=== PATIENT | female | born 1950 ===

== ENCOUNTER 2024-11-19 11:10 | Inpatient (IN) ==
[2024-11-19] MEDS ORDERED: IOPAMIDOL 100 ML BOTTLE IV ONE (11:11)
[2024-11-19] MEDS: 0.9 % SODIUM CHLORIDE 1,000 ML IV ONE (11:42)
[2024-11-19 12:00] LABS: Basophils # (Auto) 0.04 K/mcL (0.00-0.30); Basophils % (Auto) 0.4 % (0.0-2.0); Eosinophils # (Auto) 0.34 K/mcL (0.00-0.70); Eosinophils % (Auto) 3.6 % (0.0-7.0); Hematocrit 43.2 % (34.1-44.9); Hemoglobin 14.5 g/dL (11.2-15.7); Lymphocytes # (Auto) 2.89 K/mcL (1.50-4.80); Lymphocytes % (Auto) 30.4 % (15.5-49.0); Mean Cell Volume 95.2 fL (80.0-100.0); Mean Corpuscular HGB Conc 33.6 g/dL (31.0-36.0); Mean Platelet Volume 10.4 fL (8.8-12.5); Monocytes # (Auto) 0.85 K/mcL (0.10-0.90); Monocytes % (Auto) 8.9 % (1.0-12.0); Neutrophils % (Auto) 56.6 % (38.0-78.0); Platelet Count 235 K/mcL (140-440); RBC 4.54 M/mcL (3.59-5.38); Red Cell Distribution Width 12.8 % (11.5-14.5); WBC 9.5 K/mcL (4.5-11.0)
[2024-11-19] MEDS: DILTIAZEM 25 MG/5 ML VIAL IV ONE ×2 (12:29→13:52)
[2024-11-19 12:38] LABS: Blood Urea Nitrogen 23 mg/dL (8-23); Calcium 9.2 mg/dL (8.6-10.4); Carbon Dioxide 20 mmol/L (22-30); Chloride 106 mmol/L (96-108); Glomerular Filtration Rate 72; Glucose 94 mg/dL (70-105); Potassium 4.2 mmol/L (3.3-5.1); Sodium 139 mmol/L (133-145)
[2024-11-19 13:06] LABS: Thyroid Stimulating Hormone 0.01 uIU/mL (0.27-5.01)
[2024-11-19] MEDS: ADENOSINE 3 MG/ML VIAL IV ONE ×2 (13:14→13:16)
[2024-11-19 13:50] LABS: Free T4 (Free Thyroxine) 1.74 ng/dL (0.93-1.70)
[2024-11-19] MEDS: FUROSEMIDE 20 MG/2 ML VIAL IV ONE (13:52)
[2024-11-19] MEDS: DILTIAZEM 125 MG in DEXTROSE 5% IN WATER 100 ML IV SCH (13:52)
[2024-11-19] MEDS: niCARdipine 25 MG in 0.9 % SODIUM CHLORIDE 240 ML IV ONE (13:53)
[2024-11-19] MEDS: METOPROLOL TARTRATE 5 MG/5 ML VIAL IV ONE (15:45)
[2024-11-19] MEDS: ENOXAPARIN 60 MG/0.6 ML SYRINGE SQ ONE (15:52)
[2024-11-19] MEDS: METOPROLOL TARTRATE 5 MG/5 ML VIAL IV SCH (16:33)
[2024-11-19] MEDS: DILTIAZEM 120 MG CAP.XL.24H PO ONE ×2 (18:03→19:25)
[2024-11-19] MEDS ORDERED: MAGNESIUM SULFATE 2 GM/50 ML BAG IV PRN (19:53)
[2024-11-19] MEDS ORDERED: IPRATROPIUM/ALBUTEROL 3 ML AMPUL.NEB NEB PRN (19:53)
[2024-11-19] MEDS ORDERED: SENNOSIDES 1 TABLET PO PRN (19:53)
[2024-11-19] MEDS ORDERED: POTASSIUM CHLORIDE 40 MEQ in DEXTROSE 5% IN WATER 500 ML IV PRN (19:53)
[2024-11-19] MEDS ORDERED: POTASSIUM CHLORIDE 20 MEQ TABLET PO PRN ×2 (19:53)
[2024-11-19] MEDS ORDERED: POLYETHYLENE GLYCOL 3350 17 GM PACKET PO PRN (19:53)
[2024-11-19] MEDS ORDERED: METOCLOPRAMIDE 10 MG/2 ML VIAL IV PRN (19:53)
[2024-11-19] MEDS ORDERED: ONDANSETRON 4 MG/2 ML VIAL IV PRN (19:53)
[2024-11-19] MEDS: METOPROLOL TARTRATE 50 MG TABLET PO SCH (20:06)
[2024-11-19] MEDS: ESMOLOL 2,500 MG in PREMIX 1 BAG IV SCH (20:09)
[2024-11-19] MEDS: 0.9 % SODIUM CHLORIDE 250 ML IV SCH (20:10)
[2024-11-19] MEDS: ESMOLOL 250 ML IV ONE (20:10)
[2024-11-19] MEDS: METOPROLOL TARTRATE 25 MG TABLET ONE (20:11)
[2024-11-19] MEDS: DOCUSATE SODIUM 100 MG CAPSULE PO SCH (21:22)
[2024-11-19] MEDS: ENOXAPARIN 60 MG/0.6 ML SYRINGE SQ SCH (21:29)
[2024-11-19] MEDS: ENOXAPARIN 60 MG/0.6 ML SYRINGE ONE (21:31)
[2024-11-20] MEDS: METOPROLOL TARTRATE 5 MG/5 ML VIAL IV PRN (00:30)
[2024-11-20] MEDS: ESMOLOL 0 ML IV ONE (02:37)
[2024-11-20] MEDS: AMIODARONE 150 MG/100 ML IV PRN (03:38)
[2024-11-20] MEDS: AMIODARONE 150 MG/3 ML VIAL ONE ×2 (03:45→05:23)
[2024-11-20] MEDS: ESMOLOL 250 ML IV ONE ×3 (05:52→23:49)
[2024-11-20 07:11] LABS: ALT/SGPT 34 U/L (<40); AST/SGOT 29 U/L (<32); Albumin 3.4 gm/dL (3.2-5.2); Albumin/Globulin Ratio 1.4 (1.0-2.3); Alkaline Phosphatase 128 U/L (39-117); Bilirubin,Direct 0.5 mg/dL (<0.3); Bilirubin,Total 1.1 mg/dL (0.1-1.0); Blood Urea Nitrogen 18 mg/dL (8-23); Calcium 8.7 mg/dL (8.6-10.4); Carbon Dioxide 19 mmol/L (22-30); Chloride 105 mmol/L (96-108); Globulin 2.4 gm/dL (2.2-3.7); Glomerular Filtration Rate 85; Glucose 89 mg/dL (70-105); Lactate Dehydrogenase 196 U/L (135-225); Phosphorous 3.5 mg/dL (2.5-4.5); Potassium 3.9 mmol/L (3.3-5.1); Sodium 140 mmol/L (133-145); Triglycerides 89 mg/dL (<150); Uric Acid 6.6 mg/dL (2.5-8.0)
[2024-11-20 08:15] LABS: Thyroid Stimulating Hormone 0.01 uIU/mL (0.27-5.01)
[2024-11-20 08:16] LABS: Free T4 (Free Thyroxine) 1.7 ng/dL (0.93-1.70)
[2024-11-20] MEDS: METOPROLOL TARTRATE 50 MG TABLET PO SCH ×2 (08:29→21:04)
[2024-11-20] MEDS: METHIMAZOLE 5 MG TABLET PO SCH (08:30)
[2024-11-20] MEDS: DILTIAZEM 240 MG CAP.XL.24H PO SCH (09:29)
[2024-11-20] MEDS: DIGOXIN 500 MCG/2 ML AMPUL IV ONE (11:54)
[2024-11-20] MEDS: METOPROLOL TARTRATE 50 MG TABLET PO ONE (12:01)
[2024-11-20] MEDS: DIGOXIN 500 MCG/2 ML AMPUL IV SCH (18:25)
[2024-11-21 07:12] LABS: Basophils # (Auto) 0.05 K/mcL (0.00-0.30); Basophils % (Auto) 0.5 % (0.0-2.0); Eosinophils # (Auto) 0.32 K/mcL (0.00-0.70); Eosinophils % (Auto) 3.2 % (0.0-7.0); Hematocrit 44.3 % (34.1-44.9); Hemoglobin 14.6 g/dL (11.2-15.7); Lymphocytes # (Auto) 1.84 K/mcL (1.50-4.80); Lymphocytes % (Auto) 18.2 % (15.5-49.0); Mean Cell Volume 95.3 fL (80.0-100.0); Mean Platelet Volume 10.9 fL (8.8-12.5); Monocytes # (Auto) 0.99 K/mcL (0.10-0.90); Monocytes % (Auto) 9.8 % (1.0-12.0); Neutrophils % (Auto) 68.2 % (38.0-78.0); Platelet Count 240 K/mcL (140-440); RBC 4.65 M/mcL (3.59-5.38); Red Cell Distribution Width 12.6 % (11.5-14.5); WBC 10.1 K/mcL (4.5-11.0)
[2024-11-21 07:13] LABS: ALT/SGPT 28 U/L (<40); AST/SGOT 27 U/L (<32); Albumin 3.5 gm/dL (3.2-5.2); Albumin/Globulin Ratio 1.5 (1.0-2.3); Alkaline Phosphatase 124 U/L (39-117); Bilirubin,Total 0.9 mg/dL (0.1-1.0); Blood Urea Nitrogen 16 mg/dL (8-23); Calcium 8.9 mg/dL (8.6-10.4); Carbon Dioxide 21 mmol/L (22-30); Chloride 103 mmol/L (96-108); Globulin 2.4 gm/dL (2.2-3.7); Glomerular Filtration Rate 85; Glucose 97 mg/dL (70-105); Potassium 3.8 mmol/L (3.3-5.1); Sodium 136 mmol/L (133-145)
[2024-11-21] MEDS: FUROSEMIDE 20 MG TABLET PO SCH (08:26)
[2024-11-21] MEDS: APIXABAN 5 MG TABLET PO SCH (11:01)
[2024-11-21] MEDS: LISINOPRIL 2.5 MG TABLET PO SCH (11:01)
[2024-11-21] MEDS: DIGOXIN 125 MCG TABLET PO SCH (15:10)
[2024-11-22 06:54] LABS: Basophils # (Auto) 0.03 K/mcL (0.00-0.30); Basophils % (Auto) 0.3 % (0.0-2.0); Eosinophils # (Auto) 0.32 K/mcL (0.00-0.70); Eosinophils % (Auto) 3.3 % (0.0-7.0); Hematocrit 45.9 % (34.1-44.9); Hemoglobin 15.5 g/dL (11.2-15.7); Lymphocytes # (Auto) 2.44 K/mcL (1.50-4.80); Lymphocytes % (Auto) 25.4 % (15.5-49.0); Mean Cell Volume 94.4 fL (80.0-100.0); Mean Corpuscular HGB Conc 33.8 g/dL (31.0-36.0); Mean Platelet Volume 10.8 fL (8.8-12.5); Monocytes # (Auto) 1.14 K/mcL (0.10-0.90); Monocytes % (Auto) 11.9 % (1.0-12.0); Platelet Count 259 K/mcL (140-440); RBC 4.86 M/mcL (3.59-5.38); Red Cell Distribution Width 12.7 % (11.5-14.5); WBC 9.6 K/mcL (4.5-11.0)
[2024-11-22 07:44] LABS: ALT/SGPT 26 U/L (<40); AST/SGOT 27 U/L (<32); Albumin 3.5 gm/dL (3.2-5.2); Albumin/Globulin Ratio 1.3 (1.0-2.3); Alkaline Phosphatase 123 U/L (39-117); Bilirubin,Total 1.1 mg/dL (0.1-1.0); Blood Urea Nitrogen 10 mg/dL (8-23); Calcium 9.1 mg/dL (8.6-10.4); Carbon Dioxide 22 mmol/L (22-30); Chloride 101 mmol/L (96-108); Globulin 2.7 gm/dL (2.2-3.7); Glomerular Filtration Rate 90; Glucose 97 mg/dL (70-105); Potassium 3.5 mmol/L (3.3-5.1); Sodium 136 mmol/L (133-145)
[2024-11-22] MEDS: DIGOXIN 125 MCG TABLET PO SCH (11:52)
[2024-11-22] MEDS ORDERED: DIGOXIN 125 MCG TABLET PO SCH (14:00)
[2024-11-23 06:18] LABS: Digoxin 1.1 ng/mL
[2024-11-23 06:32] LABS: ALT/SGPT 28 U/L (<40); AST/SGOT 28 U/L (<32); Albumin 3.3 gm/dL (3.2-5.2); Albumin/Globulin Ratio 1.3 (1.0-2.3); Alkaline Phosphatase 113 U/L (39-117); Bilirubin,Total 0.8 mg/dL (0.1-1.0); Blood Urea Nitrogen 13 mg/dL (8-23); Carbon Dioxide 21 mmol/L (22-30); Chloride 106 mmol/L (96-108); Globulin 2.6 gm/dL (2.2-3.7); Glomerular Filtration Rate 85; Glucose 102 mg/dL (70-105); Sodium 139 mmol/L (133-145)
[2024-11-23 06:43] LABS: Basophils # (Auto) 0.03 K/mcL (0.00-0.30); Basophils % (Auto) 0.3 % (0.0-2.0); Eosinophils # (Auto) 0.47 K/mcL (0.00-0.70); Eosinophils % (Auto) 4.8 % (0.0-7.0); Lymphocytes % (Auto) 27.7 % (15.5-49.0); Mean Cell Volume 94.3 fL (80.0-100.0); Mean Corpuscular HGB Conc 33.3 g/dL (31.0-36.0); Mean Platelet Volume 10.6 fL (8.8-12.5); Monocytes # (Auto) 1.07 K/mcL (0.10-0.90); Neutrophils % (Auto) 55.9 % (38.0-78.0); Platelet Count 257 K/mcL (140-440); RBC 4.77 M/mcL (3.59-5.38); Red Cell Distribution Width 12.7 % (11.5-14.5); WBC 9.8 K/mcL (4.5-11.0)
[2024-11-23] MEDS: SPIRONOLACTONE 25 MG TABLET PO SCH (08:26)
[2024-11-23 16:00] LABS: Digoxin 1.1 ng/mL
== END 2024-11-23 17:03 | disposition home or self-care (01) | DRG 308 ==
LOC: ED 11:10 → ICU 19:46
PROVIDERS: ADMIT Internal Medicine; ATTEND Internal Medicine